=== PATIENT | female | born 1955 | race African-American/Black ===

== ENCOUNTER 2016-08-06 23:13 | Emergency (ER) | payer MEDICAID ==
[~2016-08-06] VITALS: Ht 167.6 cm; Wt 74.8 kg
--- NOTE | 2016-08-06 23:19 | NUR ---
aurora tello at bedside to ekta hylton.
--- NOTE | 2016-08-06 23:20 | NUR ---
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. 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 pt [id number] no acute distress noted, resp even and unlabored. er md at bedside to eval pt with orders received. will carry out orders.
[2016-08-06] MEDS ORDERED: ONDANSETRON HCL/PF 4 MG/2 ML VIAL IV ONE (23:30)
[2016-08-06] MEDS ORDERED: IBUPROFEN 400 MG TABLET PO ONE (23:30)
[2016-08-06] MEDS ORDERED: CLONIDINE HCL 0.1 MG TABLET PO ONE (23:30)
[2016-08-06] MEDS ORDERED: IV NS 0.9% 1,000 ML BAG IV ONE (23:30)
[2016-08-06] MEDS ORDERED: ONDANSETRON HCL/PF 4 MG/2 ML VIAL ONE (23:33)
[2016-08-06] MEDS ORDERED: CLONIDINE HCL 0.1 MG TABLET ONE (23:33)
[2016-08-06] MEDS ORDERED: IBUPROFEN 400 MG TABLET ONE (23:33)
[2016-08-06] MEDS ORDERED: IV NS 0.9% 1,000 ML ONE (23:34)
--- NOTE | 2016-08-06 23:42 | NUR ---
pt medicated by rn per er md order.
--- NOTE | 2016-08-07 00:48 | NUR ---
pt asleep no acute distress noted, resp even and unlabored. call light within reach. will continue to monitor pt closely.
[2016-08-07] MEDS ORDERED: ACETAMINOPHEN ES 500 MG TABLET ONE (01:56)
[2016-08-07] MEDS ORDERED: ACETAMINOPHEN 325 MG TABLET PO ONE (02:00)
--- NOTE | 2016-08-07 02:43 | NUR ---
pt asleep no acute distress noted, resp even and unlabored. call light within reach. will continue to monitor pt closely.
--- NOTE | 2016-08-07 05:50 | NUR ---
IV removed. Catheter intact and site benign. Pressure and 4x4 applied to site. No bleeding noted. Patient discharged stable condition. Written and verbal after care instructions given. Patient verbalizes understanding of instruction. Patient to [facility] via taxi. No futher complaints.
[2016-08-07 05:51] VITALS: BP 101/60
== END 2016-08-07 05:57 | disposition home or self-care (01) ==
LOC: ER 23:16
DX: F11.23 Opioid dependence with withdrawal (principal); R11.10 Vomiting, unspecified; F32.9 Major depressive disorder, single episode, unspecified
CPT/HCPCS: 96361; 96374; 99284; A4606; J2405; J7030; Z7610